=== PATIENT | male | born 1990 | race Caucasian/White ===

== ENCOUNTER 2019-06-07 12:20 | Emergency (ER) | payer SELFPAY ==
[2019-06-07 12:33] VITALS: BP 159/88; PULSE 97
--- NOTE | 2019-06-07 12:39 | EDM.PDOC ---
ED HPI GENERAL MEDICAL PROBLEM - General Chief Complaint: Skin Complaint Stated Complaint: CYST Time Seen by Provider: 06/07/19 12:35 Source of Information: Reports: Patient - History of Present Illness INITIAL COMMENTS - FREE TEXT/NARRATIVE: HISTORY AND PHYSICAL: History of present illness: []From presents with a pilonidal cyst which has auto drained last night pain was 10 out of 10 however the cyst opened up copious exudate drained with relief of pain no fever nausea vomiting chills sweats will start the patient on Bactrim and have him follow-up with general surgery, he does live out of town and has elected follow-up in [facility] Review of systems: As per history of present illness and below otherwise all systems reviewed and negative. Past medical history: As per history of present illness and as reviewed below otherwise noncontributory. Surgical history: As per history of present illness and as reviewed below otherwise noncontributory. Social history: No reported history of drug or alcohol abuse. Family history: As per history of present illness and as reviewed below otherwise noncontributory. Physical exam: HEENT: Atraumatic, normocephalic, pupils reactive, negative for conjunctival pallor or scleral icterus, mucous membranes moist, throat clear, neck supple, nontender, trachea midline. Lungs: Clear to auscultation, breath sounds equal bilaterally, chest nontender. Heart: S1S2, regular, negative for clicks, rubs, or JVD. Abdomen: Soft, nondistended, nontender. Negative for masses or hepatosplenomegaly. Negative for costovertebral tenderness. Pelvis: Stable nontender. Genitourinary: Deferred. Rectal: Deferred. Extremities: Atraumatic, negative for cords or calf pain. Neurovascular unremarkable. Neuro: Awake, alert, oriented. Cranial nerves II through XII unremarkable. Cerebellum unremarkable. Motor and sensory unremarkable throughout. Exam nonfocal. Skin only remarkable for the pilonidal cyst auto drainage, no exudate for culture today unable to express any purulence from the lesion Diagnostics: [ no drainage for culture today ] Therapeutic Bactrim ] Impression: [ pilonidal cyst ] Definitive disposition and diagnosis as appropriate pending reevaluation and review of above. tailbone/upper buttock Pain Score (Numeric/FACES): 2 - Related Data Allergies Allergy/AdvReac Type Severity Reaction Status Date / Time No Known Allergies Allergy Verified 06/07/19 12:32 Home Meds: Home Meds . [No Known Home Meds] 12/02/15 [History] Past Medical History - Past Health History Medical/Surgical History: Denies Medical/Surgical History Social & Family History - Family History Family Medical History: Noncontributory ED ROS GENERAL - Review of Systems Review Of Systems: See Below ED EXAM, SKIN/RASH Exam: See Below Course - Vital Signs Last Recorded V/S: Last Vital Signs Temp 96.0 F 06/07/19 12:26 Pulse 97 06/07/19 12:26 Resp 18 06/07/19 12:26 BP 159/88 H 06/07/19 12:26 Pulse Ox 96 06/07/19 12:26 Departure - Departure Time of Disposition: 12:38 Disposition: Home, Self-Care 01 Condition: Good Clinical Impression: Pilonidal cyst - Discharge Information Referrals: PCP,None [Primary Care Provider] - Additional Instructions: Medication as prescribed Return if symptoms persist or worsen Follow-up with general surgery, call phone number below to schedule appropriate follow-up You have stated that to prefer to see make your own arrangements at home if you' re unable to find arrangements for definitive care you may elect follow-up with our surgeons with the below contact information [facility] - General Surgery [address], [address] [place] [address] The following information is given to patients seen in the emergency department who are being discharged to home. This information is to outline your options for follow-up care. We provide all patients seen in our emergency department with a follow-up referral. The need for follow-up, as well as the timing and circumstances, are variable depending upon the specifics of your emergency department visit. If you don't have a primary care physician on staff, we will provide you with a referral. We always advise you to contact your personal physician following an emergency department visit to inform them of the circumstance of the visit and for follow-up with them and/or the need for any referrals to a consulting specialist. The emergency department will also refer you to a specialist when appropriate. This referral assures that you have the opportunity for follow-up care with a specialist. All of these measure are taken in an effort to provide you with optimal care, which includes your follow-up. Under all circumstances we always encourage you to contact your private physician who remains a resource for coordinating your care. When calling for follow-up care, please make the office aware that this follow-up is from your recent emergency room visit. If for any reason you are refused follow-up, please contact the [facility] emergency department at and asked to speak to the emergency department charge nurse.
== END 2019-06-07 12:48 | disposition home or self-care (01) ==
LOC: MW.ED 12:20
DX: L05.91 Pilonidal cyst without abscess (principal)
CPT/HCPCS: 99282